=== PATIENT | female | born 1960 ===

== ENCOUNTER → 2019-07-03 | Outpatient (CLI) | payer OTHER ==
[~2019-07-03] MED LIST: ALPHA LIPOIC A200 MG; AMOX500; Acidophilus La100 GM; CALMAGZIN; CENTRUM SILVER1 EAC3; CHOL10002; Coq-10100 MG; METF500; NATURAL LUTEIN20 MG; POTASSIUM GLUC500 MG; THYR60; [UNRECOGNIZED DRUG - OTHER]
[2019-07-04 10:37] LABS: Candida species (DNA Probe) Negative (NEGATIVE); G. vaginalis (DNA Probe) Positive (NEGATIVE); T. vaginalis (DNA Probe) Negative (NEGATIVE)
== END | disposition home or self-care (01) ==
LOC: LAB SHORT 19:13 → LAB 19:13
PROVIDERS: Nurse Practitioner
DX: R30.0 Dysuria (principal)
CPT/HCPCS: 87480; 87510; 87660